=== PATIENT | male | born 1970 | race Caucasian/White ===

== ENCOUNTER 2022-04-26 20:00 | Outpatient (CLI) | payer BC, SELFPAY | END 2022-04-26 20:01 | disposition home or self-care (01) | LOC: SLEEP 04-27 06:11 | PROVIDERS: Visit Provider Nurse Practitioner Family | DX: G47.10 Hypersomnia, unspecified (principal); R06.83 Snoring; R53.83 Other fatigue; G47.33 Obstructive sleep apnea (adult) (pediatric) | CPT/HCPCS: 95810 ==

== ENCOUNTER 2022-06-22 06:30 | Outpatient (CLI) | payer BC, SELFPAY | END 2022-06-22 06:31 | disposition home or self-care (01) | LOC: SLEEP 06-23 06:31 | PROVIDERS: Visit Provider Nurse Practitioner Family | DX: G47.31 Primary central sleep apnea (principal) | CPT/HCPCS: 95811 ==